=== PATIENT | female | born 1945 | race Caucasian/White ===

== ENCOUNTER 2019-04-13 06:50 | Day surgery (SDC) | payer MEDICARE, BC ==
[~2019-04-13 06:50] MED LIST: Buffered Lidocaine 1% SYRIN* 1 ML/SYRINGE INTRADERM ONE; DiMENhydriNATE IV* 50 MG/ML VIAL IV PUSH PRN; Famotidine IV* 10 MG/ML 2 ML (20 mg) IV ONE; HYDROmorphone INJ1* 1 MG/ML SYRINGE IV PRN; Lactated Ringers 1000 ML Bag* 1,000 ML IV SCH; Naloxone* 0.4 MG/ML 1 ML VIAL IV PRN; PROCHLORPERAZINE INJ 5 MG/ML 2 ML VIAL IV PRN; fentaNYL* 50 MCG/ML 2 ML VIAL (100 MCG VIAL) IV PRN; oxyCODONE TAB* 5 MG TAB PO PRN
[2019-04-13] MEDS ORDERED: Lidocaine 2.5%/Prilocain 2.5%* 5 GM TUBE ONE (07:08)
[2019-04-13] MEDS ORDERED: Buffered Lidocaine 1% SYRIN* 1 ML/SYRINGE INTRADERM ONE (07:09)
[2019-04-13] MEDS ORDERED: Ondansetron ODT TAB* 4 MG PO ONE (08:00)
[2019-04-13] MEDS ORDERED: Dexamethasone TAB* 4 MG PO ONE (08:00)
[2019-04-13] MEDS ORDERED: Famotidine IV* 10 MG/ML 2 ML (20 mg) ONE ×2 (10:56→11:20)
[2019-04-13] MEDS ORDERED: Dexamethasone IV* 4 MG/ML 1 ML (4 MG) ONE (10:56)
[2019-04-13] MEDS ORDERED: Ondansetron ODT TAB* 4 MG ONE (10:56)
[2019-04-13] MEDS ORDERED: Dexamethasone TAB* 4 MG ONE (11:11)
[2019-04-13] MEDS ORDERED: Lidocaine 1% INJ* 10 MG/ML 30 ML SDV ONE (11:53)
[2019-04-13] MEDS ORDERED: Bupivacaine 0.5%* 50 ML MDV VIAL ONE (11:53)
[2019-04-13] MEDS ORDERED: KETAMINE HCL* 50 MG/ML 10 ML VIAL ONE (12:03)
[2019-04-13] MEDS ORDERED: fentaNYL* 50 MCG/ML 2 ML VIAL (100 MCG VIAL) ONE (12:03)
[2019-04-13] MEDS ORDERED: Midazolam* 1 MG/ML 2 ML VIAL (2 MG) ONE (12:04)
[2019-04-13] MEDS ORDERED: ceFAZolin 2 GM in NS PREMIX(*) 2 GM/100 ML BAG IVPB ONE (12:20)
[2019-04-13] MEDS ORDERED: Propofol* 10 MG/ML 20 ML BTL ONE (14:49)
[2019-04-13] MEDS ORDERED: Lidocaine 2% PF * 5 ML VIAL ONE (14:49)
--- NOTE | 2019-04-13 14:49 | BRIEFOPN ---
Brief Operative/Procedure Note - Operation Details Pre-Op Diagnosis: Left breast cancer Post-Op Diagnosis: same Procedures: Left breast lumpectomy (after needle-localization) with excision of additional margin; sentinel lymph node biopsy Surgeon(s)/Proceduralists: Stu. Assist: KATIE Lynne Anesthesia: GET. Fluids: 900 ml crystalloid Estimated Blood Loss: < 50 ml Findings: as above Specimen(s)/Culture(s) Description: portion left breast; additional deep/medial margin Complications: none
[2019-04-13 17:38] VITALS: BP 137/88
--- NOTE | 2019-04-14 01:02 | OP ---
CC: Dr. Antonia Garcia * DATE OF OPERATION: 04/13/19 - [facility] DATE OF : 45 SERVICE: General Surgery. SURGEON: Martha Peraza MD PLASTIC WORKER: KATIE Forte ANESTHESIOLOGIST: Lopez Andre MD PRE-OP DIAGNOSIS: Left breast cancer. POST-OP DIAGNOSIS: Left breast cancer. OPERATIVE PROCEDURE: Left breast needle localized lumpectomy and sentinel lymph node biopsy. SPECIMENS: Left breast lumpectomy and additional medial posterior margin and sentinel lymph node biopsies #1 through 5. SENTINEL LYMPH NODE BIOPSY: Lymphoscintigraphy. INDICATIONS FOR SURGERY: Ms. Meier is a 73-year-old female who recently underwent an abnormal screening mammogram that identified an abnormal appearing mass in her left upper outer quadrant. 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 She gave informed consent for a needle localized left lumpectomy and a sentinel lymph node biopsy. She understood that the risks included, but were not limited to bleeding, infection, injury to nearby structures, and the possibility for reexcision for positive margins. She understood the alternatives and benefits as well and she wished to proceed. DESCRIPTION OF PROCEDURE: The patient was brought back to the operating room and placed on the operating table in the supine position. Sequential compression devices were placed on bilateral lower extremities for DVT prophylaxis. Antibiotics were administered. Sedation was given by the anesthesiologist and then her left breast was prepped and draped in normal sterile fashion. The patient had previously undergone wire localization and injection of the radiotracer dye by Radiology. She had a wire emanating from the upper outer quadrant of her left breast, which was cut to approximately 2 inches. The left breast was also somewhat bruised from her prior core biopsy. I reviewed the mammogram and sentinal lymph node scan, which were present and displaced in the OR for reference. Next, a time-out was performed prior to beginning the surgery, which verified her name, date of , and the procedure to be performed. Next, an incision was made surrounding the wire that also incorporated the wire. The skin was divided down to the subcutaneous tissue and then surrounding this wire, a cone of tissue was divided extending posteriorly towards the chest wall given that this lesion was very close to the chest wall as well as medially. Once the entire specimen was removed, it was marked with a short suture at the superior pole, a medium length suture at the medial pole, and a long suture at the lateral pole. It was carried off fresh to mammography where it was confirmed that the lesion, the clip and wire were all placed within the specimen. However, there was concern that there may have been some of the spiculated edge of the cancer was located towards the posterior margin; therefore, an additional medial posterior margin was obtained and it was marked with a short suture at the superior pole, a medium length suture at the medial pole, and a long suture at the lateral pole. This was labeled as new medial posterior margin. Next, attention was turned towards performing the sentinel lymph node biopsy. Given that the incision was made in the upper outer quadrant of the breast, the sentinel lymph node biopsy was performed through the same incision in the upper outer quadrant of the breast. The axillary fat pad was identified and the fascia overlying it was divided. The axillary fat pad was elevated with Allis clamps and then the sentinel lymph nodes were identified using a [place] counter and each dissected and divided on its pedicle. Jennings lymph node biopsy #1 had an in situ count of 5386, the ex vivo count was 5527. Jennings lymph node #2 had an in situ count of 657 and an ex vivo count of 66. Jennings lymph node #3 had an in situ count of 1124 and an ex vivo count of 1235. Jennings lymph node #4 had an in situ count of 2542 and an ex vivo count of 3668. Jennings lymph node #5 had an in situ count of 160 and an ex vivo count of 168. After obtaining all these 5 sentinel lymph nodes, the final axillary bed count was 6. At this point, hemostasis was obtained in both axilla and the breast cavity. Clips were placed in the breast cavity to emmett its borders. Local anesthesia had been infiltrated prior to beginning the case and was also infiltrated into the breast cavity. Attention was then turned towards closure. 3-0 Vicryl sutures were used to close the dermis of the skin and a 4-0 Monocryl suture was used to close the skin. Sterile dressing was then placed. The patient was awoken from her anesthesia and she was taken to the PACU in stable condition. At the end of the case, all counts were correct and I was present during the entirety of the case. After the case concluded I went down to the Pathology department to orient the specimen and its additional margin. [id number]/[facility] #: [id number] MTDD
== END 2019-04-13 16:55 | disposition home or self-care (01) ==
LOC: SDS 06:50
PROVIDERS: ATTEND Surgery
DX: C50.912 Malignant neoplasm of unspecified site of left female breast (principal); C77.3 Secondary and unspecified malignant neoplasm of axilla and upper limb lymph nodes; Z87.891 Personal history of nicotine dependence; M81.0 Age-related osteoporosis without current pathological fracture
CPT/HCPCS: 77061; 78195; 88307; 88342; A9270-GY; A9541; G0279; J0690; J1100; J2250; J2704; J3010; J3490; J8540

== ENCOUNTER 2020-08-21 06:57 | Observation (INO) ==
[2020-08-21] MEDS ORDERED: NS 0.9% 1000 ml BAG 1,000 ML IV ONE (07:23)
[2020-08-21] MEDS ORDERED: Lidocaine/Epineph/Tetraca GEL 3 ML GEL IN SYR TOPICAL ONE (07:31)
[2020-08-21 08:12] LABS: ABS Eosinophils 0.1 10^3/ul (0-0.6); ABS Lymphocytes 1.1 10^3/ul (1.0-4.8); ABS Monocytes 0.7 10^3/ul (0-0.8); ABS Neutrophils 5.9 10^3/ul (1.5-7.7); Eosinophil % 0.9 %; Hematocrit 39 % (35-47); Hemoglobin 13.1 g/dL (12.0-16.0); Lymphocyte % 13.8 %; Mean Corpuscular HGB Conc 33 g/dL (31-36); Mean Corpuscular Hemoglobin 33 pg (27-31); Mean Corpuscular Volume 100 fL (80-97); Mean Platelet Volume 9.3 fL (7.4-10.4); Platelet Count 247 10^3/uL (150-450); Red Blood Count 3.92 10^6 /uL (3.70-4.87); Red Cell Distribution Width 14 % (10-15); White Blood Count 7.7 10^3/uL (3.5-10.8)
[2020-08-21 08:35] LABS: Troponin I 0.01 ng/mL (<0.03)
[2020-08-21 08:36] LABS: Calcium 8.6 mg/dL (8.6-10.3); Total Bilirubin 0.8 mg/dL (0.2-1.0)
[2020-08-21 08:42] LABS: Albumin/Globulin Ratio 2.1 (1-3); EGFR African American 83.6 (>60); EGFR Non-African American 69.1 (>60); Globulin 1.9 g/dL (2-4); Total Protein 5.9 g/dL (6.4-8.9)
[2020-08-21] MEDS ORDERED: Bacitracin OINTMENT TUBE TOPICAL ONE (10:06)
[2020-08-21] MEDS ORDERED: Tetan/Diph/Pertus SYR(Tdap) 0.5 ML SYR(BOOSTRIX) use SYR contains LATEX IM ONE (10:06)
[2020-08-21 10:13] LABS: Potassium 4.1 mmol/L (3.5-5.0)
[2020-08-21] MEDS: Enoxaparin 40 MG/0.4 ML SYR SUBCUT SCH (21:06)
[2020-08-22] MEDS: CMCS:Anastrozole 1 mg TAB (NF) PO SCH (07:51)
[2020-08-22] MEDS: Cholecalciferol (VIT D3) 1,000 unit TAB PO SCH (07:51)
[2020-08-22] MEDS: Enoxaparin 40 MG/0.4 ML SYR SUBCUT SCH (20:19)
[2020-08-23] MEDS: CMCS:Anastrozole 1 mg TAB (NF) PO SCH (07:15)
[2020-08-23] MEDS: Cholecalciferol (VIT D3) 1,000 unit TAB PO SCH (07:15)
[2020-08-23 08:02] VITALS: BP 153/61
== END 2020-08-23 10:15 | disposition home or self-care (01) ==
LOC: ED 06:57 → MEDTELE 06:57
PROVIDERS: ADMIT Hospitalist; ATTEND Hospitalist